=== PATIENT | female | born 1995 | race Caucasian/White ===

== ENCOUNTER → 2017-08-15 | Outpatient (CLI) | payer BC ==
[~2017-08-15] MED LIST: BIRTH CONTROL PILL PO; FARXIGA10 MG PO; FERROUS GLUCON324 M2; LIPITOR20 MG PO; METFORMIN PO; ZYRTEC10 M1 PO
--- NOTE | ~2017-08-15 | EKG ---
PATIENT: BRITTA ALCANTARA UNIT #: [id number] Ventricular Rate: 88 BPM Atrial Rate: 88 BPM P-R Interval: 128 ms QRS Duration: 92 ms Q-T Interval: 358 ms QTC Calculation(Bezet): 433 ms P [place]: 40 degrees Calculated R [place]: 29 degrees Calculated T [place]: 11 degrees Diagnosis Line: Normal sinus rhythm Diagnosis Line: Normal ECG Diagnosis Line: No previous ECGs available Diagnosis Line: Confirmed by NEREYDA GAMEZ MD ([id number]) on Diagnosis Line: 08/15/2017 11:38:39 AM INTERPRETING MD: FRANCO MIN
--- NOTE | ~2017-08-15 | CR63 ---
[facility] A Service of [facility] RADIOLOGY TEXT RESULTS PATIENT: BRITTA ALCANTARA LOCATION: [facility] : [birth year] UNIT #: [id number] AGE: [address]: Esvin Calderon MD SEX: F ORDER DR: [id number] [facility] [address] [facility] [place], [place] [address] [id number] O MR#: [id number] Acc #: [id number] NAME: BRITTA ALCANTARA : 1995 SEX: F STUDY DATE/TIME: 08/15/2017 7:41 UNIT: [facility] ROOM: STUDY DESCRIPTION: CR Chest 2 View Attending Physician: Esvin Calderon M.D. Referring Physician: Esvin Calderon M.D. Ordering Physician: Esvin Calderon M.D. Primary Care Physician: Ky Hernandez Jr., M.D. MEDICAL IMAGING REPORT This report is preliminary unless electronic signature is present EXAM PA and lateral chest HISTORY Preop paraesophageal hernia repair. Shortness of air with activity. Morbid obesity. FINDINGS A PA and lateral view of the chest were obtained. The heart size and vascularity are normal and the lungs are clear and the bones are unremarkable. IMPRESSION No active disease. Dictated by... Ap Jama M.D. THIS IS AN ELECTRONICALLY VERIFIED REPORT Ap Jama M.D. at 08/15/2017 1:48 PM ANGEL/emmanuel TD: 08/15/2017 11:43 JOB #: [id number] MEDICAL IMAGING REPORT Page 1 of 1 COPY
--- NOTE | ~2017-08-15 | CR97 ---
[facility] A Service of [facility] RADIOLOGY TEXT RESULTS PATIENT: BRITTA ALCANTARA LOCATION: [facility] : [birth year] UNIT #: [id number] AGE: [address]: Esvin Calderon MD SEX: F ORDER DR: [id number] [id number] [facility] [place], [place] [address] [id number] O MR#: [id number] Acc #: [id number] NAME: BRITTA ALCANTARA : 1995 SEX: F STUDY DATE/TIME: 08/15/2017 8:37 UNIT: [facility] ROOM: STUDY DESCRIPTION: CR Esophagram Attending Physician: Esvin Caldreon M.D. Referring Physician: Esvin Calderon M.D. Ordering Physician: Esvin Calderon M.D. Primary Care Physician: Ky Hernandez Jr., M.D. MEDICAL IMAGING REPORT This report is preliminary unless electronic signature is present EXAM Single contrast barium esophagram INDICATION This is a preoperative examination prior to laparoscopic gastric banding procedure. Patient with history of shortness of breath with activity and morbid obesity. TECHNIQUE Patient was administered thin barium and multiple fluoroscopic images were obtained. FINDINGS Patient's thoracic esophagus is normal in caliber. There is no evidence of stricture or mass lesion. Esophageal motility appears within normal limits. No hiatal hernia was seen. There was no reflux identified. Total fluoroscopy time 0.5 minutes, and a total of 7 fluoroscopic images were obtained. IMPRESSION Normal single contrast barium esophagram. Dictated by... Kelly Maguire M.D. THIS IS AN ELECTRONICALLY VERIFIED REPORT Kelly Maguire M.D. at 08/18/2017 4:54 PM AFF/mjmike TD: 08/18/2017 13:50 JOB #: [id number] [facility] A Service of [facility] RADIOLOGY TEXT RESULTS PATIENT: BRITTA ALCANTARA LOCATION: [facility] #: [id number] : [birth year] UNIT #: [id number] AGE: [address]: Esvin Calderon MD SEX: F ORDER DR: MEDICAL IMAGING REPORT Page 1 of 1 COPY
[2017-08-15 10:01] LABS: HEMATOCRIT 42.3 % (35.0-45.0); HEMOGLOBIN 13.9 gm/dL (12.0-16.0); MEAN CELL VOLUME 87.8 FL (83-96); MEAN CORPUSCULAR HEMOGLOBIN 28.9 PG (28-34); MEAN CORPUSCULAR HGB CONC 32.9 g/dL (30-36); MEAN PLATELET VOLUME 8.2 FL (6.5-11.5); RED BLOOD COUNT 4.82 X10e (3.90-5.30); RED CELL DISTRIBUTION WIDTH 14.7 % (11.0-15.5); WHITE BLOOD COUNT 14.8 X10e3 (4.0-10.5)
[2017-08-15 11:15] LABS: ALBUMIN SERUM 3.9 g/dL (3.5-5.0); BILIRUBIN,TOTAL 0.3 mg/dL (0.2-2.0); BUN/CREATININE RATIO 37.5; CALCIUM SERUM 9.3 mg/dL (8.4-10.2); CREATININE SERUM 0.4 mg/dL (0.6-1.4); GLOM FILT RATE Estimated 145.8 mL/min (>60); POTASSIUM 4.8 mmol/L (3.5-5.1); PROTEIN TOTAL SERUM 7.2 g/dL (6.0-8.3)
== END | disposition home or self-care (01) ==
LOC: CAMB 07:27
PROVIDERS: Surgery
DX: Z01.818 Encounter for other preprocedural examination (principal); E66.01 Morbid (severe) obesity due to excess calories
CPT/HCPCS: 36415; 71020; 74220; 80053; 80061; 84443; 85027; 93005